=== PATIENT | male | born 2000 | race Caucasian/White ===

== ENCOUNTER 2023-07-07 22:34 | Emergency (ER) | payer OTHER ==
[2023-07-07] MEDS: IBUPROFEN 600 MG TABLET PO STA (23:02)
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
--- NOTE | 2023-07-07 23:42 | XRAY Report ---
PROCEDURE: Hand 3+V RT INDICATIONS: Trauma TECHNIQUE: 3 views of the hand(s) acquired. COMPARISON: None. FINDINGS: Bones: There is a comminuted, prominently displaced fracture of the proximal fifth metacarpal. The f ifth carpometacarpal joint is believed to be dislocated. There is a moderately displaced fracture through the midshaft of the third metacarpal. Soft tissues: Significant soft tissue swelling is seen. IMPRESSION: Significant fractures of the third and fifth metacarpals. The fifth metacarpophalangeal joint is believed to be dislocated. Significant associated soft tissue swelling can be seen. If it would be helpful for clinical management decision making, please consider a dedicated hand CT f or further evaluation. Reviewed by: Suhail Dowell MD on 07/07/2023 10:41 PM [facility] Approved by: Suhail Dowell MD on 07/07/2023 10:41 PM [facility] Station ID: [id number]
[2023-07-08] MEDS: BACITRACIN ZINC OINT 1 PACKET TOP STA (00:13)
[2023-07-08] MEDS: HYDROmorphone 1 MG/ML CARPUJECT IM STA (00:14)
[2023-07-08 06:20] VITALS: O2SAT 98
[2023-07-08 06:54] VITALS: BP 136/77
== END 2023-07-08 06:59 | disposition short-term general hospital (02) ==
LOC: ED 22:34
DX: S62.302A Unspecified fracture of third metacarpal bone, right hand, initial encounter for closed fracture (principal); S62.306A Unspecified fracture of fifth metacarpal bone, right hand, initial encounter for closed fracture; V29.99XA Rider (driver) (passenger) of other motorcycle injured in unspecified traffic accident, initial encounter
CPT/HCPCS: 73130; 96372; 99285; A9270; J1170